=== PATIENT | male | born 1935 | race Hispanic/Latino ===

== ENCOUNTER 2022-10-13 13:40 | Emergency (ER) | payer MEDICARE ==
[~2022-10-13] VITALS: Ht 167.6 cm; Wt 56.2 kg
[~2022-10-13 13:40] MED LIST: CARB-104 PO; CYAN-52 PO; ENTA200T5 PO; ROTI1PAT10 TD; VITAMIN A PO
[2022-10-13] MEDS ORDERED: ACETAMINOPHEN 500 MG TABLET PO ONE (14:30)
[2022-10-13 14:47] LABS: BASOPHILS % (AUTO) 0.3 % (0.0-5.0); EOSINOPHILS % (AUTO) 0.6 % (0.0-8.0); HEMATOCRIT 39.1 % (42-54); LYMPHOCYTES % (AUTO) 13.8 % (21.0-51.0); MEAN CORPUSCULAR HEMOGLOBIN 30.3 pg (27.0-33.0); MEAN CORPUSCULAR HGB CONC 32.7 g/dL (32.0-36.0); MEAN CORPUSCULAR VOLUME 92.7 fL (79-99); MONOCYTES % (AUTO) 7.8 % (3.0-13.0); NEUTROPHILS % (AUTO) 77.1 % (40.0-77.0); PLATELET COUNT (AUTO) 213 K/uL (130-400); RED BLOOD CELL COUNT(AUTO) 4.22 MIL/uL (4.50-6.20); RED CELL DISTRIBUTION WIDTH 14.2 % (11.0-15.5); WHITE BLOOD COUNT (AUTO) 11.1 K/uL (4.8-10.8)
[2022-10-13 14:59] LABS: CREATININE 1.1 mg/dL (0.5-1.5)
[2022-10-13 15:08] LABS: ALBUMIN 3.5 g/dL (3.5-5.0); TOTAL PROTEIN, SERUM 7.9 g/dL (6.0-8.3)
[2022-10-13 15:17] VITALS: BP 121/70
[2022-10-13] MEDS ORDERED: BACITRACIN 1 EACH PACKET TP ONE ×2 (15:50→16:00)
== END 2022-10-13 15:55 | disposition home or self-care (01) ==
LOC: EDH 13:40
DX: S01.81XA Laceration without foreign body of other part of head, initial encounter (principal); S16.1XXA Strain of muscle, fascia and tendon at neck level, initial encounter; F02.80 Dementia in other diseases classified elsewhere, unspecified severity, without behavioral disturbance, psychotic disturbance, mood disturbance, and anxiety; Z98.890 Other specified postprocedural states; Z79.899 Other long term (current) drug therapy; W01.0XXA Fall on same level from slipping, tripping and stumbling without subsequent striking against object, initial encounter; Y93.89 Activity, other specified; Y92.89 Other specified places as the place of occurrence of the external cause; Y99.8 Other external cause status
CPT/HCPCS: 36415; 70450; 71045; 72125; 80053; 84484; 85025; 93005; 96374; 96375